=== PATIENT | female | born 1985 | race African-American/Black ===

== ENCOUNTER 2024-08-19 15:24 | Emergency (ER) | payer SELFPAY ==
[~2024-08-19] VITALS: Ht 172.7 cm; Wt 118.0 kg
[2024-08-19 15:33] VITALS: O2SAT 94
[2024-08-19 16:04] LABS: DIFFERENTIAL COMMENT 1; MEAN CORPUSCULAR HGB CONC 33.3 g/dL (31.0-37.0); MEAN CORPUSCULAR VOLUME 87.2 fL (81.0-99.0); MEAN PLATELET VOLUME 7.2 fl (7.4-10.4); PLATELET 245 x1000/uL (130-400); RED BLOOD CELL COUNT 4.13 mill/uL (4.2-5.4); RED CELL DISTRIBUTION WIDTH 14.4 % (11.6-14.6); WHITE BLOOD COUNT 6.7 x1000/uL (4.5-11.0)
[2024-08-19 16:07] LABS: HCG SCREEN NEGATIVE
[2024-08-19 16:08] LABS: CHLORIDE 105 mEq/L (98-107); POTASSIUM 3.9 mEq/L (3.5-5.1); SODIUM 134 mEq/L (136-145)
[2024-08-19 16:09] LABS: CALCIUM 9.4 mg/dL (8.7-10.4); CARBON DIOXIDE 24 mEq/L (21-32)
[2024-08-19 16:14] LABS: CREATININE 0.6 mg/dL (0.6-1.0); GLUCOSE 93 mg/dL (70-105); UREA NITROGEN BLOOD 10 mg/dL (9-23)
[2024-08-19 16:16] LABS: ALANINE AMINOTRANSFERASE 13 IU/L (10-49); ALBUMIN 3.9 g/dL (3.2-4.8); ASPARTATE AMINOTRANSFERASE 18 IU/L (<34); BILIRUBIN DIRECT 0.2 mg/dL (<=3.0); BILIRUBIN TOTAL 0.5 mg/dL (0.1-1.0); PROTEIN TOTAL 8.6 g/dL (6.0-8.3)
[2024-08-19 16:34] LABS: PLATELET ESTIMATE NORMAL
[2024-08-19] MEDS ORDERED: TOPUD PO (17:09)
[2024-08-19] MEDS ORDERED: IBUP-2029 MT (17:09)
[2024-08-19] MEDS ORDERED: [UNRECOGNIZED DRUG - CODE] TP (17:09)
[2024-08-19] MEDS ORDERED: DEXT15DR5 EACHEYE (17:10)
[2024-08-19 17:19] VITALS: BP 119/56; PULSE 97; RESP 18; TEMP 37.2; O2SAT 94
== END 2024-08-19 17:24 | disposition home or self-care (01) ==
LOC: ER 16:37
DX: M54.9 Dorsalgia, unspecified (principal); M79.606 Pain in leg, unspecified; L21.0 Seborrhea capitis; I10 Essential (primary) hypertension; Z59.00 Homelessness unspecified
CPT/HCPCS: 36415; 80048; 80076; 84703; 85025; 99283